=== PATIENT | male | born 1970 | race Caucasian/White ===

== ENCOUNTER → 2020-05-06 | Outpatient (CLI) | payer OTHER ==
--- NOTE | 2020-05-06 11:07 | RAD ---
US DPLX CAROTID BILAT History: PULSATING TINNITUS Multiple grayscale, color, and duplex spectral analysis waveform sonographic images were acquired of the carotid, subclavian, and vertebral arteries. Comparison: None Findings: RIGHT SIDE: Peak systolic flow velocity of the distal CCA is 117 cm/sec. Peak systolic flow velocity of the ICA is 92 cm/sec. The ICA/CCA ratio is 0.8. Peak end diastolic flow velocity of the ICA is 34 cm/sec. The peak systolic velocity of the ECA is 157 cm/sec. No significant plaque formation is identified. LEFT SIDE: Peak systolic flow velocity of the distal CCA is 109 cm/sec. Peak systolic flow velocity of the ICA is 91 cm/sec. The ICA/CCA ratio is 0.8. Peak end diastolic flow velocity of the ICA is 34 cm/sec. Peak systolic flow velocity of the ECA is 158 cm/sec. No significant plaque formation is identified. Vertebral arteries: Bilateral vertebral arteries demonstrate antegrade flow. Impression: There is no evidence of a hemodynamically significant stenosis. PQRS Compliance Statement - Stenosis calculations for carotid ultrasound studies are derived from jackelyn idated velocity criteria which are known to correlate with the NASCET methodology. Electronically signed by: Carlos Short MD (05/06/2020 11:04 AM) [id number]
== END ==
LOC: US 07:57
PROVIDERS: ATTEND Clinical Nurse Specialist Family Health
DX: H93.A9 Pulsatile tinnitus, unspecified ear (principal)
CPT/HCPCS: 93880